=== PATIENT | female | born 1995 | race African-American/Black ===

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

== ENCOUNTER 2018-05-20 11:24 | Emergency (ER) | payer SELFPAY ==
[~2018-05-20] VITALS: Ht 160 cm; Wt 63.5 kg
[2018-05-20 11:37] VITALS: BP 130/72
--- NOTE | 2018-05-20 12:01 | PHYS DOC ---
Past Medical History Past Medical History: No Pertinent History Past Surgical History: No Surgical History Alcohol Use: None Drug Use: None Adult General Chief Complaint Chief Complaint: PAIN ON URINATION [facility] HPI Patient is a 23 year old female who presents with dysuria for 3 days. Patient denies any fever nausea vomiting abdominal pain or flank pain. Denies any hematuria. Review of Systems Review of Systems Constitutional: Denies fever or chills [] Eyes: Denies change in visual acuity, redness, or eye pain [] HENT: Denies nasal congestion or sore throat [] Respiratory: Denies cough or shortness of breath [] Cardiovascular: No additional information not addressed in HPI [] GI: Denies abdominal pain, nausea, vomiting, bloody stools or diarrhea [] : Reports dysuria, denies hematuria [] Musculoskeletal: Denies back pain or joint pain [] Integument: Denies rash or skin lesions [] Neurologic: Denies headache, focal weakness or sensory changes [] All other systems were reviewed and found to be within normal limits, except as documented in this note. Allergies Allergies Allergies Coded Allergies Type Severity Reaction Last Updated Verified No Known Drug Allergies 12/10/16 No Physical Exam Physical Exam Constitutional: Well developed, well nourished, no acute distress, non-toxic appearance. [] HENT: Normocephalic, atraumatic, bilateral external ears normal, oropharynx moist, no oral exudates, nose normal. [] Eyes: PERRLA, EOMI, conjunctiva normal, no discharge. [] Neck: Normal range of motion, no tenderness, supple, no stridor. [] Cardiovascular:Heart rate regular rhythm, no murmur [] Lungs & Thorax: Bilateral breath sounds clear to auscultation [] Abdomen: Bowel sounds normal, soft, no tenderness, no masses, no pulsatile masses. [] Skin: Warm, dry, no erythema, no rash. [] Back: No tenderness, no CVA tenderness. [] Extremities: No tenderness, no cyanosis, no clubbing, ROM intact, no edema. [] Neurologic: Alert and oriented X 3, normal motor function, normal sensory function, no focal deficits noted. [] Psychologic: Affect normal, judgement normal, mood normal. [] Current Patient Data Vital Signs Vital Signs Date Time Temp Pulse Resp B/P (MAP) Pulse Ox O2 Delivery O2 Flow Rate FiO2 2/16/19 11:37 98.8 106 16 130/72 (91) 99 Room Air 98.8 Lab Values Laboratory Tests Test 05/20/18 11:30 05/20/18 11:41 Urine Collection Type Unknown Urine Color [place]leen Urine Clarity Turbid Urine pH 6.0 Urine Specific [place] 1.025 Urine Protein >=300 mg/dL (NEG-TRACE) Urine Glucose (UA) Negative mg/dL (NEG) Urine Ketones (Stick) Trace mg/dL (NEG) Urine Blood Large (NEG) Urine Nitrite Positive (NEG) Urine Bilirubin Negative (NEG) Urine Urobilinogen Dipstick 1.0 mg/dL (0.2 mg/dL) Urine Leukocyte Esterase Large (NEG) Urine RBC >40 /HPF (0-2) Urine WBC Tntc /HPF (0-4) Urine Bacteria Many /HPF (0-FEW) POC Urine HCG, Qualitative Hcg negative (Negative) EKG EKG [] Radiology/Procedures Radiology/Procedures [] Course & Med Decision Making Course & Med Decision Making Pertinent Labs and Imaging studies reviewed. (See chart for details) This is a 23-year-old female patient presenting to the ED today with dysuria for 3 days. Negative urine hCG. Positive for UTI, discharged on cephalexin. Tylenol or Motrin for pain or fever. Also given prescription for Pyridium. Instructed to push fluids. Follow-up with PCP in 1-2 weeks. Dragon Disclaimer Dragon Disclaimer This electronic medical record was generated, in whole or in part, using a voice recognition dictation system. Departure Departure Impression: Primary Impression: Urinary tract infection Disposition: HOME, SELF-CARE Condition: STABLE Referrals: NO PCP (PCP) Follow-up with your doctor in one week Patient Instructions: Urinary Tract Infection Additional Instructions: You have urinary tract infection, we put you on antibiotics, ensure you complete them. Take the prescribed Pyridium as needed for pain. Take Tylenol/ Motrin for pain or fever. Push fluids. Follow-up with your doctor in 1-2 weeks. Scripts Phenazopyridine Hcl (PYRIDIUM) 100 Mg Tablet 100 MG PO TID, #9 TAB Prov: MUTUNGA,MACKENZIE RACE RELATIONS ADVISER 05/20/18 Cephalexin (CEPHALEXIN) 500 Mg Tablet 1 TAB PO BID, #14 TAB Prov: MUTUNGA,MACKENZIE RACE RELATIONS ADVISER 05/20/18 Problem Qualifiers Primary Impression: Urinary tract infection Urinary tract infection type: site unspecified Hematuria presence: without hematuria Qualified Codes: N39.0 - Urinary tract infection, site not specified MACKENZIE HEREDIA APRN May 20, 2018 12:01
[2018-05-20 12:18] LABS: BILIRUBIN,URINE NEGATIVE (NEG); CLARITY,URINE TURBID; COLOR,URINE AMBER; NITRITE,URINE POSITIVE (NEG); PROTEIN,URINE >=300 mg/dL (NEG-TRACE)
[2018-05-20 12:26] LABS: BACTERIA,URINE MANY /HPF (0-FEW); RBC,URINE >40 /HPF (0-2); WBC,URINE TNTC /HPF (0-4)
[2018-05-20] MEDS ORDERED: PHEN100T82 PO (12:53)
[2018-05-20] MEDS ORDERED: CEPH500T PO (12:53)
== END 2018-05-20 13:02 | disposition home or self-care (01) ==
LOC: ER 11:24
DX: N39.0 Urinary tract infection, site not specified (principal)
CPT/HCPCS: 81001; 81025; 99283

== ENCOUNTER 2019-02-21 05:58 | Emergency (ER) | payer SELFPAY ==
[~2019-02-21] VITALS: Ht 162.6 cm; Wt 70.3 kg
[~2019-02-21 05:58] MED LIST: CEPH500T PO; PHEN100T82 PO
[2019-02-21] MEDS ORDERED: IV NORMAL SALINE 1000ML BAG 1,000 ML IV SCH (06:45)
[2019-02-21 06:56] LABS: BASO % 0 % (0-3); EOS % 0 % (0-3); HEMATOCRIT 34.5 % (36.0-47.0); HEMOGLOBIN 11.4 g/dL (12.0-15.5); LYMPH # 1.1 x10^3/uL (1.0-4.8); LYMPH % 8 % (24-48); MEAN CORPUSCULAR HEMOGLOBIN 30 pg (25-35); MEAN CORPUSCULAR HGB CONC 33 g/dL (31-37); MEAN CORPUSCULAR VOLUME 89 fL (79-100); MONO # 1.4 x10^3/uL (0.0-1.1); MONO % 10 % (0-9); NEUT % 82 % (31-73); PLATELET COUNT 393 x10^3/uL (140-400); RED BLOOD COUNT 3.86 x10^6/uL (3.50-5.40); WHITE BLOOD COUNT 13.5 x10^3/uL (4.0-11.0)
--- NOTE | 2019-02-21 07:12 | PHYS DOC ---
Past Medical History Past Medical History: No Pertinent History Past Surgical History: No Surgical History Alcohol Use: None Drug Use: None Adult General Chief Complaint Chief Complaint: ABDOMINAL PAIN [facility] HPI Patient is a 23 year old female without history of medical problems who presents with complaint of abdominal pain. Patient complaining of gradual onset of right lower quadrant pain for the last 3 days as a constant pain with radiation to her back and rated her pain 10 over 10. Patient complaining of nausea and anorexia with constipation and states she had a bowel movement 2 days ago and usually she has bowel movement every day. Patient states she doesn't know if the pain changing with position or eating and drinking. Patient denies urinary symptoms, vaginal bleeding and discharge, , history of the same pain. Patient states she didn't take any pain medication at home. Review of Systems Review of Systems Constitutional: Denies fever or chills [] Eyes: Denies change in visual acuity, redness, or eye pain [] HENT: Denies nasal congestion or sore throat [] Respiratory: Denies cough or shortness of breath [] Cardiovascular: No additional information not addressed in HPI [] GI: Reports abdominal pain, nausea, constipation, denies vomiting, bloody stools or diarrhea [] : Denies dysuria or hematuria [] Musculoskeletal: Denies back pain or joint pain [] Integument: Denies rash or skin lesions [] Neurologic: Denies headache, focal weakness or sensory changes [] Endocrine: Denies polyuria or polydipsia [] All other systems were reviewed and found to be within normal limits, except as documented in this note. Current Medications Current Medications Current Medications Medications (Trade) Dose Ordered Sig/Bryan Start Time Stop Time Status Last Admin Dose Admin Ceftriaxone Sodium (Rocephin) 1 gm 1X ONCE 02/21/19 10:45 02/21/19 10:46 DC Info (CONTRAST GIVEN -- Rx MONITORING) 1 each PRN DAILY PRN 02/21/19 08:45 02/23/19 08:44 Iohexol (Omnipaque 300 Mg/ml) 75 ml 1X ONCE 02/21/19 08:45 02/21/19 08:46 DC 02/21/19 08:50 75 ML Ketorolac Tromethamine (Toradol 30mg Vial) 30 mg 1X ONCE 02/21/19 08:00 02/21/19 08:01 DC 02/21/19 08:22 30 MG Ondansetron HCl (Zofran) 4 mg 1X ONCE 02/21/19 08:15 02/21/19 08:19 DC 02/21/19 08:20 4 MG Potassium Chloride (Klor-Con) 40 meq 1X ONCE 02/21/19 10:30 02/21/19 10:31 DC Sodium Chloride 1,000 ml @ 1,000 mls/hr Q1H 02/21/19 06:45 02/21/19 07:44 DC 02/21/19 06:48 1,000 MLS/HR Allergies Allergies Allergies Coded Allergies Type Severity Reaction Last Updated Verified No Known Drug Allergies 12/10/16 No Physical Exam Physical Exam Constitutional: Well developed, well nourished, mild distress, non-toxic appearance. [] HENT: Normocephalic, atraumatic, bilateral external ears normal, oropharynx moist, no oral exudates, nose normal. [] Eyes: PERRLA, EOMI, conjunctiva normal, no discharge. [] Neck: Normal range of motion, no tenderness, supple, no stridor. [] Cardiovascular:Heart rate regular rhythm, no murmur [] Lungs & Thorax: Bilateral breath sounds clear to auscultation [] Abdomen: Bowel sounds normal, soft, right lower quadrant guarding, no tenderness, no masses, no pulsatile masses. [] Skin: Warm, dry, no erythema, no rash. [] Back: No tenderness, no CVA tenderness. [] Extremities: No tenderness, no cyanosis, no clubbing, ROM intact, no edema. [] Neurologic: Alert and oriented X 3, normal motor function, normal sensory function, no focal deficits noted. [] Psychologic: Affect normal, judgement normal, mood normal. [] Current Patient Data Vital Signs Vital Signs Date Time Temp Pulse Resp B/P (MAP) Pulse Ox O2 Delivery O2 Flow Rate FiO2 02/21/19 08:50 88 18 115/70 (85) 99 Room Air 02/21/19 06:07 98.4 98.4 Lab Values Laboratory Tests Test 02/21/19 06:15 02/21/19 06:53 02/21/19 09:54 White Blood Count 13.5 x10^3/uL (4.0-11.0) H Red Blood Count 3.86 x10^6/uL (3.50-5.40) Hemoglobin 11.4 g/dL (12.0-15.5) L Hematocrit 34.5 % (36.0-47.0) L Mean Corpuscular Volume 89 fL (79-100) Mean Corpuscular Hemoglobin 30 pg (25-35) Mean Corpuscular Hemoglobin Concent 33 g/dL (31-37) Red Cell Distribution Width 15.0 % (11.5-14.5) H Platelet Count 393 x10^3/uL (140-400) Neutrophils (%) (Auto) 82 % (31-73) H Lymphocytes (%) (Auto) 8 % (24-48) L Monocytes (%) (Auto) 10 % (0-9) H Eosinophils (%) (Auto) 0 % (0-3) Basophils (%) (Auto) 0 % (0-3) Neutrophils # (Auto) 11.0 x10^3/uL (1.8-7.7) H Lymphocytes # (Auto) 1.1 x10^3/uL (1.0-4.8) Monocytes # (Auto) 1.4 x10^3/uL (0.0-1.1) H Eosinophils # (Auto) 0.0 x10^3/uL (0.0-0.7) Basophils # (Auto) 0.0 x10^3/uL (0.0-0.2) Sodium Level 135 mmol/L (136-145) L Potassium Level 3.0 mmol/L (3.5-5.1) L Chloride Level 97 mmol/L (98-107) L Carbon Dioxide Level 28 mmol/L (21-32) Anion Gap 10 (6-14) Blood Urea Nitrogen 5 mg/dL (7-20) L Creatinine 0.8 mg/dL (0.6-1.0) Estimated GFR (Cockcroft-Gault) 109.6 BUN/Creatinine Ratio 6 (6-20) Glucose Level 102 mg/dL (70-99) H Calcium Level 9.1 mg/dL (8.5-10.1) Total Bilirubin 0.4 mg/dL (0.2-1.0) Aspartate Amino Transferase (AST) 12 U/L (15-37) L Alanine Aminotransferase (ALT) 11 U/L (14-59) L Alkaline Phosphatase 58 U/L (46-116) Total Protein 8.7 g/dL (6.4-8.2) H Albumin 3.0 g/dL (3.4-5.0) L Albumin/Globulin Ratio 0.5 (1.0-1.7) L Lipase 26 U/L (73-393) L Serum Test, Qualitative Negative (NEG) Urine Collection Type Void Urine Color Yellow Urine Clarity Clear Urine pH 6.0 Urine Specific [place] >=1.030 Urine Protein 30 mg/dL (NEG-TRACE) Urine Glucose (UA) Negative mg/dL (NEG) Urine Ketones (Stick) >=80 mg/dL (NEG) Urine Blood Negative (NEG) Urine Nitrite Negative (NEG) Urine Bilirubin Negative (NEG) Urine Urobilinogen Dipstick 0.2 mg/dL (0.2 mg/dL) Urine Leukocyte Esterase Negative (NEG) Urine RBC Rare /HPF (0-2) Urine WBC 5-10 /HPF (0-4) Urine Squamous Epithelial Cells Mod /LPF Urine Bacteria Few /HPF (0-FEW) Urine Mucus Mod /LPF Urine Opiates Screen Neg (NEG) Urine Methadone Screen Neg (NEG) Urine Barbiturates Neg (NEG) Urine Phencyclidine Screen Neg (NEG) Urine Amphetamine/Methamphetamine Neg (NEG) Urine Benzodiazepines Screen Neg (NEG) Urine Cocaine Screen Neg (NEG) Urine Cannabinoids Screen Pos (NEG) Urine Ethyl Alcohol Neg (NEG) Laboratory Tests 02/21/19 06:15 Laboratory Tests 02/21/19 06:15 EKG EKG [] Radiology/Procedures Radiology/Procedures [][facility] [address] [place], [place] [id number] IMAGING REPORT Signed PATIENT: KENNETH SEPULVEDA ACCOUNT: [id number] : 1995 LOCATION: ER AGE: 23 SEX: F EXAM STATUS: REG ER ORD. PHYSICIAN: KAROL SANCHES MD REASON: right lower quadrant pain 3 days PROCEDURE: CT ABD PELV W/ IV CONTRST ONLY PQRS Compliance Statement: One or more of the following individualized dose reduction techniques were utilized for this examination: 1. Automated exposure control 2. Adjustment of the mA and/or kV according to patient size 3. Use of iterative reconstruction technique CT ABD PELV W/ IV CONTRST ONLY Clinical Indication: Right lower quadrant abdominal pain. Comparison: None. Technique: Helical CT imaging of the abdomen and pelvis is performed after 75 cc of Omnipaque 300 IV contrast. Oral contrast not given. Findings: Lung bases are clear. Cardiac size normal. There is mild free fluid inferior to the tip of the right hepatic lobe. Liver, gallbladder, spleen, pancreas, adrenal glands, abdominal aorta, and kidneys are normal. The stomach is unremarkable. There is no dilated small bowel. No colon wall thickening is appreciated. The appendix is not well seen. Mild induration along the left paracolic gutter. Urinary bladder is normal. Anteverted uterus. There is a dominant left ovary functional cyst measuring 4.2 cm. Mild pelvic free fluid. There appear to be multiple cysts of the right ovary. Bilateral ovaries size is prominent. There is a 1 cm right Bartholin's cyst. There is faint rim enhancement. Cannot exclude superimposed inflammation. Bilateral inguinal lymph nodes may be reactive. No acute bone abnormality. IMPRESSION: 1. Dominant left ovary functional cyst. There appear to be multiple cysts of the right ovary. There is mild abdominal and pelvic free fluid. Pelvic inflammatory disease cannot be excluded. Recommend further evaluation with pelvic ultrasound. 2. The appendix is not well seen. 3. Small right Bartholin's cyst. There is faint rim enhancement and superimposed inflammation cannot be excluded. Electronically signed by: Aamir Brush MD (02/21/2019 9:48 AM) [id number] DICTATED and SIGNED BY: AAMIR BRUSH MD DATE: 02/21/19 0948 Course & Med Decision Making Course & Med Decision Making Pertinent Labs and Imaging studies reviewed. (See chart for details) Evaluation of patient in ER showed 23-year-old female patient with complaining of right lower quadrant pain for 3 days. Patient had unremarkable physical exam and vital signs. Patient had mild leukocytosis with UTI. CT abd/pel showed unremarkable appendix, ovarian cyst with mild amount of free fluid. Patient did not want to have vaginal exam. Patient had mild anemia with history of heavy vaginal bleeding and was advised to follow up with her [employer] regarding ovarian cyst and vaginal bleeding. Patient had potassium of 2.0 and treated with oral potassium. Patient tolerated oral intake and felt better with IV fluid, Zofran, Toradol in ER. 1 dose of Rocephin was ordered and prescription for Cipro and ibuprofen was given. I've spoken with the patient and/or caregivers. I've explained the patient's condition, diagnosis and treatment plan based on information available to me at this time. I've answered the patient's and/or caregivers questions and addressed any concerns. The patient and/or caregivers have a good understanding the patient's diagnosis, condition and treatment plan as can be expected at this point. Vital signs have been stabilized. The patient's condition is stable for discharge from the emergency department. The patient will pursue further outpatient evaluation with her primary care provider or other designated consulting physician as outlined in the discharge instructions. Patient and/or caregivers are agreeable to this plan of care and follow-up instructions have been explained in detail. The patient and/or caregivers have received these instructions in written format and expressed understanding of these discharge instructions. The patient and her caregivers are aware that if any significant change in condition or worsening of symptoms should prompt him to immediately return to this of the closest emergency department. If an emergent department is not readily available I would encourage him to call 911. Graciela Disclaimer Dragon Disclaimer This electronic medical record was generated, in whole or in part, using a voice recognition dictation system. Departure Departure Impression: Primary Impression: Urinary tract infection Additional Impressions: Hemorrhagic ovarian cyst Hypokalemia Anemia Right lower quadrant pain Marijuana use Disposition: HOME, SELF-CARE (1038) Condition: IMPROVED Referrals: NO PCP (PCP) Patient Instructions: Anemia, FAQs, Hypokalemia, Marijuana Abuse-Brief, Ovarian Cyst, Urinary Tract Infection Additional Instructions: Drink plenty of liquids Follow-up with your primary care physician in 3-5 days Return to ER if not getting better Follow-up with your [employer] in 2 or 3 days regarding heavy vaginal bleeding and ovarian cyst Scripts Ibuprofen (IBUPROFEN) 600 Mg Tablet 600 MG PO PRN Q6HRS PRN for PAIN, #20 TAB take with food or milk Prov: KAROL SANCHES MD 02/21/19 Ciprofloxacin Hcl (CIPRO) 250 Mg Tablet 1 TAB PO BID for infection, #14 TAB Prov: KAROL SANCHES MD 02/21/19 Problem Qualifiers Primary Impression: Urinary tract infection Urinary tract infection type: site unspecified Hematuria presence: without hematuria Qualified Codes: N39.0 - Urinary tract infection, site not specified Additional Impressions: Anemia Anemia type: unspecified type Qualified Codes: D64.9 - Anemia, unspecified KAROL SANCHES MD Feb 21, 2019 07:12
[2019-02-21 07:25] LABS: CALCIUM 9.1 mg/dL (8.5-10.1); CREATININE 0.8 mg/dL (0.6-1.0); GFR 109.6
[2019-02-21 07:32] LABS: ALBUMIN/GLOBULIN RATIO 0.5 (1.0-1.7); TOTAL BILIRUBIN 0.4 mg/dL (0.2-1.0); TOTAL PROTEIN 8.7 g/dL (6.4-8.2)
[2019-02-21 07:35] LABS: PREG TEST PT QUAL NEGATIVE (NEG)
[2019-02-21] MEDS ORDERED: KETOROLAC 30 MG/ML VIAL. IVP ONE (08:00)
[2019-02-21] MEDS ORDERED: ONDANSETRON PF 4 MG/2 ML VIAL. IV ONE (08:15)
[2019-02-21] MEDS ORDERED: CONTRAST GIVEN. MC PRN (08:45)
[2019-02-21] MEDS ORDERED: IOHEXOL 300 MG/ML 100ML VIAL. IV ONE (08:45)
--- NOTE | 2019-02-21 09:51 | RAD ---
PQRS Compliance Statement: One or more of the following individualized dose reduction techniques were utilized for this examination: 1. Automated exposure control 2. Adjustment of the mA and/or kV according to patient size 3. Use of iterative reconstruction technique CT ABD PELV W/ IV CONTRST ONLY Clinical Indication: Right lower quadrant abdominal pain. Comparison: None. Technique: Helical CT imaging of the abdomen and pelvis is performed after 75 cc of Omnipaque 300 IV contrast. Oral contrast not given. Findings: Lung bases are clear. Cardiac size normal. There is mild free fluid inferior to the tip of the right hepatic lobe. Liver, gallbladder, spleen, pancreas, adrenal glands, abdominal aorta, and kidneys are normal. The stomach is unremarkable. There is no dilated small bowel. No colon wall thickening is appreciated. The appendix is not well seen. Mild induration along the left paracolic gutter. Urinary bladder is normal. Anteverted uterus. There is a dominant left ovary functional cyst measuring 4.2 cm. Mild pelvic free fluid. There appear to be multiple cysts of the right ovary. Bilateral ovaries size is prominent. There is a 1 cm right Bartholin's cyst. There is faint rim enhancement. Cannot exclude superimposed inflammation. Bilateral inguinal lymph nodes may be reactive. No acute bone abnormality. IMPRESSION: 1. Dominant left ovary functional cyst. There appear to be multiple cysts of the right ovary. There is mild abdominal and pelvic free fluid. Pelvic inflammatory disease cannot be excluded. Recommend further evaluation with pelvic ultrasound. 2. The appendix is not well seen. 3. Small right Bartholin's cyst. There is faint rim enhancement and superimposed inflammation cannot be excluded. Electronically signed by: Aamir Ford MD (02/21/2019 9:48 AM) [id number]
[2019-02-21 10:02] LABS: BILIRUBIN,URINE NEGATIVE (NEG); CLARITY,URINE CLEAR; COLOR,URINE YELLOW; NITRITE,URINE NEGATIVE (NEG); PROTEIN,URINE 30 mg/dL (NEG-TRACE); UROBILINOGEN,URINE 0.2 mg/dL (0.2 mg/dL)
[2019-02-21 10:16] LABS: RBC,URINE RARE /HPF (0-2)
[2019-02-21 10:17] LABS: BACTERIA,URINE FEW /HPF (0-FEW); SQUAMOUS EPITHELIAL CELL,UR MOD /LPF
[2019-02-21 10:21] LABS: BARBITURATES NEG (NEG); BENZODIAZEPINES NEG (NEG); CANNABINOIDS POS (NEG); COCAINE NEG (NEG); METHADONE NEG (NEG); OPIATES NEG (NEG); PHENCYCLIDINE NEG (NEG)
[2019-02-21 10:22] LABS: AMPHETAMINE/METHAMPHETAMINE NEG (NEG)
[2019-02-21] MEDS ORDERED: POTASSIUM CHLORIDE 20 MEQ TABLET.ER. PO ONE (10:30)
[2019-02-21] MEDS ORDERED: CIPR250T30 PO (10:43)
[2019-02-21] MEDS ORDERED: IBUP-1007 PO (10:43)
[2019-02-21] MEDS ORDERED: cefTRIAXone IV Push 1 GM VIAL. IVP ONE (10:45)
[2019-02-21 11:20] VITALS: BP 105/68
== END 2019-02-21 11:30 | disposition home or self-care (01) ==
LOC: ER 05:58
DX: N39.0 Urinary tract infection, site not specified (principal); D64.9 Anemia, unspecified; R10.31 Right lower quadrant pain; E87.6 Hypokalemia; N83.209 Unspecified ovarian cyst, unspecified side; F12.90 Cannabis use, unspecified, uncomplicated
CPT/HCPCS: 36415; 74177; 80053; 80307; 81001; 83690; 84703; 85025; 87086; 96374; 96375; 99285; J1885; J2405; J7030; Q9967

== ENCOUNTER 2020-10-08 09:12 | Emergency (ER) | payer SELFPAY ==
[~2020-10-08] VITALS: Ht 167.6 cm; Wt 68.1 kg
[~2020-10-08 09:12] MED LIST changes: +CIPR250T30 PO; +IBUP-1007 PO
--- NOTE | 2020-10-08 09:40 | ED.ADGEN ---
Past Medical History Past Medical History: No Pertinent History Past Surgical History: No Surgical History Smoking Status: Never Smoker Alcohol Use: None Drug Use: None General Adult EDM: Chief Complaint: SEXUALLY TRANSMITTED DISEASE HPI: HPI: Patient is a 25-year-old female who arrives ambulatory to the emergency department complaining of a lesion of her genitalia which has been present for over 1 week. Patient is of the belief that she may be at risk for sexually transmitted disease. Patient states this lesion is solitary and itches. She denies any pain associated with this lesion. She further denies any history of vaginal discharge and states the likelihood of her being is slim as she is on her period. The patient further denies any dysuria or fevers. She is awake, alert and nontoxic-appearing. Review of Systems: Review of Systems: Constitutional: Denies fever or chills. [] Eyes: Denies change in visual acuity. [] HENT: Denies nasal congestion or sore throat. [] Respiratory: Denies cough or shortness of breath. [] Cardiovascular: Denies chest pain or edema. [] GI: Denies abdominal pain, nausea, vomiting, bloody stools or diarrhea. [] : Reports to lesion of vagina. Denies dysuria. [] Musculoskeletal: Denies back pain or joint pain. [] Integument: Denies rash. [] Neurologic: Denies headache, focal weakness or sensory changes. [] Endocrine: Denies polyuria or polydipsia. [] Lymphatic: Denies swollen glands. [] Psychiatric: Denies depression or anxiety. [] Current Medications: Current Medications Medications (Trade) Dose Ordered Sig/Bryan Start Time Stop Time Status Last Admin Dose Admin Azithromycin (Zithromax) 1,000 mg 1X ONCE 10/08/20 11:30 10/08/20 11:31 DC Ceftriaxone Sodium (Rocephin Im) 500 mg 1X ONCE 10/08/20 11:30 10/08/20 11:31 DC Penicillin G Benzathine (Bicillin L-A) 2,400,000 unit 1X ONCE 10/08/20 10:00 10/08/20 10:01 DC 10/08/20 10:42 2,400,000 UNIT Allergies: Allergies: Allergies Coded Allergies Type Severity Reaction Last Updated Verified No Known Drug Allergies 12/10/16 No Physical Exam: PE: Constitutional: Well developed, well nourished, no acute distress, non-toxic appearance. [] HENT: Normocephalic, atraumatic, bilateral external ears normal, oropharynx moist, no oral exudates, nose normal. [] Eyes: PERRLA, EOMI, conjunctiva normal, no discharge. [] Neck: Normal range of motion, no tenderness, supple, no stridor. [] Cardiovascular:Heart rate regular rhythm, no murmur [] Lungs & Thorax: Bilateral breath sounds clear to auscultation [] Abdomen: Bowel sounds normal, soft, no tenderness, no masses, no pulsatile masses. [] Genitourinary: Patient has a lesion at the clitoral martinez which is fleshy in appearance and nontender upon palpation. There is no drainage present. This lesion looks to be most consistent with a primary chancre consistent with syphilis. Skin: Warm, dry, no erythema, no rash. [] Back: No tenderness, no CVA tenderness. [] Extremities: No tenderness, no cyanosis, no clubbing, ROM intact, no edema. [] Neurologic: Alert and oriented X 3, normal motor function, normal sensory function, no focal deficits noted. [] Psychologic: Affect normal, judgement normal, mood normal. [] Current Patient Data: Labs: Laboratory Tests Test 10/08/20 09:57 10/08/20 10:03 Urine Collection Type Unknown Urine Color Yellow Urine Clarity Cloudy Urine pH 6.0 (<5.0-8.0) Urine Specific [place] 1.025 (1.000-1.030) Urine Protein Negative mg/dL (NEG-TRACE) Urine Glucose (UA) Negative mg/dL (NEG) Urine Ketones (Stick) Trace mg/dL (NEG) Urine Blood Large (NEG) Urine Nitrite Negative (NEG) Urine Bilirubin Negative (NEG) Urine Urobilinogen Dipstick 0.2 mg/dL (0.2 mg/dL) Urine Leukocyte Esterase Negative (NEG) Urine RBC 20-40 /HPF (0-2) Urine WBC Occ /HPF (0-4) Urine Bacteria 0 /HPF (0-FEW) POC Urine HCG, Qualitative Hcg negative (Negative) Microbiology 10/08/20 Wet Prep - Final, Complete Vital Signs: Vital Signs Date Time Temp Pulse Resp B/P (MAP) Pulse Ox O2 Delivery O2 Flow Rate FiO2 10/08/20 10:41 68 17 109/64 (79) 99 Room Air 10/08/20 09:26 98.2 98.2 EKG: EKG: [] Heart Score: C/O Chest Pain: N/A Risk Factors: Risk Factors: DM, Current or recent (<one month) smoker, HTN, HLP, family history of CAD, obesity. Risk Scores: Score 0 - 3: 2.5% MACE over next 6 weeks - Discharge Home Score 4 - 6: 20.3% MACE over next 6 weeks - Admit for Clinical Observation Score 7 - 10: 72.7% MACE over next 6 weeks - Early Invasive Strategies Radiology/Procedures: Radiology/Procedures: [] Course & Med Decision Making: Course & Med Decision Making Pertinent Labs and Imaging studies reviewed. (See chart for details) The patient remains awake, alert and in no acute distress. The patient's physical examination mirrors that of primary syphilis. As such the patient has been treated in the emergency department. I have also elected to treat the patient for gonorrhea and chlamydia empirically as the patient is a greater risk for roger these illnesses in light of having syphilis. I have advised the patient to follow-up with the health department for further testing to include both herpes and HIV but not limited to such test. I have also advised the patient to avoid sexual contact until she is fully tested as well as that of her partner. The patient understands and has agreed to do so. She is nontoxic-appearing and stable for discharge peer [] Graciela Disclaimer: Graciela Disclaimer: This electronic medical record was generated, in whole or in part, using a voice recognition dictation system. Departure Departure Impression: Primary Impression: Syphilis Disposition: HOME / SELF CARE / HOMELESS Condition: STABLE Referrals: NO PCP (PCP) Patient Instructions: Sexually Transmitted Disease, Syphilis Detection Test HANS BROOKE DO Oct 08, 2020 09:40
[2020-10-08] MEDS ORDERED: PENICILLIN G BENZATHINE LA 2,400,000 UNIT/4 ML DISP.SYRIN. IM ONE (10:00)
[2020-10-08 10:11] LABS: BILIRUBIN,URINE NEGATIVE (NEG); CLARITY,URINE CLOUDY; COLOR,URINE YELLOW; NITRITE,URINE NEGATIVE (NEG); PROTEIN,URINE NEGATIVE (NEG-TRACE); UROBILINOGEN,URINE 0.2 mg/dL (0.2 mg/dL)
[2020-10-08 10:21] LABS: BACTERIA,URINE 0 /HPF (0-FEW); RBC,URINE 20-40 /HPF (0-2); WBC,URINE OCC /HPF (0-4)
[2020-10-08] MEDS ORDERED: AZITHROMYCIN 250 MG TABLET. PO ONE (11:30)
[2020-10-08] MEDS ORDERED: cefTRIAXone IM 500 MG VIAL. IM ONE (11:30)
[2020-10-08 12:47] VITALS: BP 135/67
[2020-10-09 21:12] LABS: GC PROBE Negative (Negative)
== END 2020-10-08 12:54 | disposition home or self-care (01) ==
LOC: ER 09:12
DX: A53.9 Syphilis, unspecified (principal)
CPT/HCPCS: 36415; 81001; 81025; 86592; 87491; 87591; 96372; 99284; J0561; J0696; Q0111

== ENCOUNTER 2021-07-07 12:16 | Emergency (ER) | payer SELFPAY ==
[~2021-07-07] VITALS: Ht 152.4 cm; Wt 69.9 kg
[2021-07-07 13:54] LABS: BACTERIA,URINE FEW /HPF (0-FEW); RBC,URINE 0 /HPF (0-2); WBC,URINE OCC /HPF (0-4)
--- NOTE | 2021-07-07 14:32 | PHYS DOC ---
Past Medical History Past Medical History: No Pertinent History Past Surgical History: No Surgical History Smoking Status: Never Smoker Alcohol Use: None Drug Use: None General Adult EDM: Chief Complaint: SEXUALLY TRANSMITTED DISEASE HPI: HPI: Patient is a 26 year old female who presents with concern for sexually transmitted infection. Patient states she has had 2 partners over the past 6 months. Her prior partner informed her recently that he tested positive for trichomoniasis. She denies vaginal symptoms, but reports intermittent and sporadic low abdominal pain. Review of Systems: Review of Systems: ROS negative or noncontributory except as mentioned in HPI. Heart Score: C/O Chest Pain: No Allergies: Allergies: Allergies Coded Allergies Type Severity Reaction Last Updated Verified No Known Drug Allergies 07/07/21 No Physical Exam: PE: Constitutional: Well developed, well nourished, no acute distress, non-toxic appearance. HENT: Normocephalic, atraumatic, bilateral external ears normal, oropharynx moist, no oral exudates, nose normal. Eyes: EOMI, conjunctiva normal, no discharge. Neck: Normal range of motion, no stridor. Abdomen: Soft, no tenderness, no masses, no pulsatile masses. Skin: Warm, dry, no erythema, no rash. Extremities: No cyanosis, no clubbing, ROM intact, no edema. Neurologic: Alert and oriented x4, normal motor function, normal sensory function, no focal deficits noted. Current Patient Data: Labs: Laboratory Tests Test 07/07/21 12:37 07/07/21 12:44 Urine Collection Type Unknown Urine Color (Auto) Light yellow Urine Turbidity Hazy Urine pH (Auto) 6.5 (<5.0-8.0) Urine Specific [place] 1.014 (1.000-1.030) Urine Protein (Auto) Negative mg/dL (Negative) Urine Glucose (Auto)(UA) Negative mg/dL (Negative) Urine Ketones (Auto) Negative mg/dL (Negative) Urine Blood (Auto) Negative (Negative) Urine Nitrite Negative (Negative) Urine Bilirubin (Auto) Negative (Negative) Urine Urobilinogen (Auto) Normal mg/dL (Normal) Urine Leukocyte Esterase (Auto) Negative (Negative) Urine RBC 0 /HPF (0-2) Urine WBC Occ /HPF (0-4) Urine Squamous Epithelial Cells Many /LPF Urine Bacteria Few /HPF (0-FEW) Urine Mucus Mod /LPF POC Urine HCG, Qualitative Hcg negative (Negative) Procedure Result WET PREP Final YEAST NONE SEEN TRICHOMONAS NONE SEEN CLUE CELLS CLUE CELLS PRESENT WBCS FEW RBCS OCCASIONAL SQUAMOUS EPS MANY Vital Signs: Vital Signs Date Time Temp Pulse Resp B/P (MAP) Pulse Ox O2 Delivery O2 Flow Rate FiO2 07/07/21 15:00 72 14 122/74 (90) 98 07/07/21 12:34 97.6 101 14 140/76 (97) 98 Room Air 97.6 Course & Med Decision Making: Course & Med Decision Making Pertinent Labs and Imaging studies reviewed. (See chart for details) Patient is a 26-year-old female who presents with concern for STI. She is asymptomatic, with the exception of intermittent and sporadic low abdominal pain. Will obtain labs including urinalysis, urine GC PCR, wet prep, syphilis. Using shared decision-making, patient will not not be treated empirically for gonorrhea chlamydia. Trichomoniasis is not seen on wet prep, however patient does appear to have BV. Metronidazole and zofran prescribed. Patient's questions were answered and return precautions were provided. Patient understands and is agreeable to discharge plan. Graciela Disclaimer: Graciela Disclaimer: This electronic medical record was generated, in whole or in part, using a voice recognition dictation system. Departure Departure Impression: Primary Impression: Bacterial vaginosis Disposition: HOME / SELF CARE / HOMELESS Condition: STABLE Referrals: NO PCP (PCP) Patient Instructions: Bacterial Vaginosis, [id number], Sexually Transmitted Disease, [id number] Additional Instructions: EMERGENCY DEPARTMENT GENERAL DISCHARGE INSTRUCTIONS Thank you for coming to [facility] Emergency Department (ED) today and trusting us with you care. We trust that you had a positive experience in our Emergency Department. If you wish to speak to the department management, you may call the director at . YOUR FOLLOW UP INSTRUCTIONS ARE FOLLOWS: 1. Follow up with your primary care doctor. If you do not have a primary doctor, please ask for a resource list of physicians or clinics that may be able to assist you with follow up care. 2. The emergency provider has interpreted your imaging studies, if any were ordered. The radiology application development specialist also reviewed them. If there is a change in the findings, you will be notified in 48 hours when at all possible. 3. If a lab test or culture has been done, your results will be reviewed and you will be notified if you need a change in treatment. 4. Follow instructions verbalized to you and refer to the printouts if needed. ADDITIONAL INSTRUCTIONS AND INFORMATION: 1. Your care today has been supervised by a physician who is specially trained in emergency care. Many problems require more than one evaluation for a complete diagnosis and treatment. We recommend that you schedule your follow up appointment as recommended to ensure complete treatment of you illness or injury. If you are unable to obtain follow up care and continue to have a problem, or if your condition worsens, we recommend that you return to the ED. 2. We are not able to safely determine your condition over the phone nor are we able to give sound medical advice over the phone. For these safety reasons, if you call for medical advice we will ask you to come to the ED for further evaluation. 3. If you have any questions regarding these discharge instructions please call the ED at . SAFETY INFORMATION: In the interest of safety, wellness, and injury prevention; we encourage you to wear your seat belt, if you smoke; quite smoking, and we encourage family to use a protective helmet for bicycling and other sporting events that present an increased risk for head injury. IF YOUR SYMPTOMS WORSEN OR NEW SYMPTOMS DEVELOP, OR YOU HAVE CONCERNS ABOUT YOUR CONDITION; OR IF YOUR CONDITION WORSENS WHILE YOU ARE WAITING FOR YOUR FOLLOW UP APPOINTMENT; EITHER CONTACT YOUR PRIMARY CARE DOCTOR, THE PHYSICIAN WHOSE NAME AND NUMBER YOU WERE GIVEN, OR RETURN TO THE ED IMMEDIATELY. Scripts Ondansetron (ONDANSETRON ODT) 4 Mg Tab.rapdis 1 TAB PO PRN Q6-8HRS, #20 TAB Prov: LORI SMITH 07/07/21 Metronidazole (METRONIDAZOLE) 500 Mg Tablet 1 TAB PO BID for 7 Days, #14 TAB 0 Refills Prov: LORI SMITH 07/07/21 LORI SMITH Jul 07, 2021 14:32
[2021-07-07] MEDS ORDERED: ONDA4TAB12 PO (14:49)
[2021-07-07] MEDS ORDERED: METR-34 PO (14:49)
[2021-07-07 15:00] VITALS: BP 122/74
[2021-07-10] MEDS ORDERED: PENICILLIN G BENZATHINE LA 2,400,000 UNIT/4 ML DISP.SYRIN. IM ONE (16:30)
== END 2021-07-07 15:01 | disposition home or self-care (01) ==
LOC: ER 12:16
DX: N76.0 Acute vaginitis (principal); B96.89 Other specified bacterial agents as the cause of diseases classified elsewhere
CPT/HCPCS: 81001; 81025; 86592; 87491; 87591; 99283; Q0111